=== PATIENT | male | born 1940 | race Caucasian/White ===

== ENCOUNTER 2019-02-19 20:58 | Observation (INO) | payer MEDICARE ==
[2019-02-20 00:07] VITALS: BMI 25.0
[2019-02-20] MEDS ORDERED: hydrALAZINE 20 MG/ML VIAL SLOW IVP PRN (08:31)
[2019-02-20] MEDS ORDERED: Benzonatate 100 MG CAP PO PRN (08:34)
[2019-02-20] MEDS ORDERED: Senokot S 8.6-50 MG TAB PO PRN (08:34)
[2019-02-20] MEDS ORDERED: Nitroglycerin 0.4 MG TAB (25 Tab Bottle) SL PRN (08:34)
[2019-02-20] MEDS ORDERED: Diabetic Tussin 200 MG/10 ML UDCUP PO PRN (08:34)
[2019-02-20] MEDS ORDERED: Bisacodyl 5 MG TAB PO PRN (08:34)
[2019-02-20] MEDS ORDERED: Acetaminophen 500 MG TAB PO PRN (08:34)
[2019-02-20] MEDS ORDERED: Ondansetron PF 4 MG/2 ML Vial IVP PRN (08:34)
[2019-02-20] MEDS ORDERED: Non-Formulary Item 1 EACH (Ubidecarenone [Coq-10] 100 MG) PO SCH (09:00)
[2019-02-20] MEDS ORDERED: LORATADINE 10 MG PO SCH (09:00)
[2019-02-20] MEDS ORDERED: Aspirin 325 mg Enteric Coated Tablet PO SCH (09:00)
[2019-02-20 09:12] LABS: Anion Gap 13 mmol/L (10-20); BUN (Urea Nitrogen) 12 mg/dL (8.4-25.7); Calc. Creatinine Clearance 67 mL/min (70-130); Calcium 9.3 mg/dL (7.8-10.44); Carbon Dioxide 24 mmol/L (23-31); Chloride 95 mmol/L (98-107); Estimated GFR-MDRD 76; Glucose 146 mg/dL (83-110); Potassium 4.3 mmol/L (3.5-5.1); Sodium 128 mmol/L (136-145)
[2019-02-20] MEDS: Loratadine 10 MG TAB PO SCH (10:07)
[2019-02-20] MEDS: Ubidecarenone 50 MG CAP PO SCH (10:09)
[2019-02-20] MEDS: Sodium Chloride 0.9% 1,000 ML IV SCH (11:57)
--- NOTE | 2019-02-20 11:57 | HP ---
PRIMARY CARE PHYSICIAN: Davis Shoemaker MD. PRIMARY GREETER GUEST SERVICES: Scotty Rodriguez MD. CHIEF COMPLAINT: Speech impediment. HISTORY OF PRESENT ILLNESS: Mr. Ace is a very pleasant 78-year-old male with past medical history of hypertension and new diagnosis of prostate cancer, who is scheduled for prostate biopsy on 02/26/2019: Came to the emergency room with above-mentioned complaint. History is mainly obtained by the patient himself and electronic medical records have been reviewed. According to Mr. Ace and his , he had sudden onset of garbled speech yesterday evening around 5:30 p.m. He was last seen by his normal around 6:30 p.m. Later when he was trying to speak, he was not making any sense and he appeared confused. He was not able to answer any of her questions appropriately and would only nod. He did seem to understand the questions, but was not able to answer them correctly. The patient himself remembers that he was trying to write down some important document, but he was not able to write the numbers correctly. He tried very hard to form the numbers, but he could not figure out how to write them. He also noticed that he was trying to say something, but it was coming out of something entirely different. His brought him to [place] [facility] within a short period of time. Upon presentation there, he was hemodynamically stable with a blood pressure 108/69, respirations 18, temperature 99, saturating 96% on room air, and heart rate 86. According to the , his symptoms cleared up significantly in the emergency room in [place]. While they were trying to figure out if he would be a candidate for tPA, he started to talk in full intelligible sentences and since then he has had no recurrence of his symptoms. Because of quick resolution of the symptoms: TPA was not given. His head CT done at the outside emergency room was unremarkable. He was transferred here to our facility for further evaluation. Please note that he was given one dose of 325 mg of aspirin in the [place] [facility] last night. Mr. Ace reports that because of his upcoming prostate biopsy on 02/26/2019: He was supposed to not take his aspirin for 7 days. He did take his aspirin on 02/17 and has just missed the dose on 02/18 for one day. He was given aspirin in the ER on 02/19. The patient otherwise denies any recent illnesses. He did have one episode of fever, chills, and weakness last month, which resolved quickly. He has been in general feeling somewhat tired and having some night sweats. Denies any nausea, vomiting, diarrhea, or abdominal pain. Denies any muscle weakness, facial droop, or any gait issues. His swallowing is intact. Speech is now back to normal. No chest pain, shortness of breath, orthopnea, or PND. No hematemesis, melena, or hematuria. PAST MEDICAL HISTORY: 1. New diagnosis of prostate cancer, scheduled for biopsy on 02/26/2019, PSA was 34. 2. Mitral valve regurgitation, status post repair. PAST SURGICAL HISTORY: 1. Mitral valve repair. 2. Cardiac catheterization in August 2013, which showed normal coronaries, but severe mitral regurgitation with normal left ventricular systolic function. PAST PSYCHIATRIC HISTORY: No anxiety. No depression. SOCIAL HISTORY: No history of drug, tobacco, or alcohol abuse. Lives at home with his . FAMILY HISTORY: Strongly positive for coronary artery disease in his father and his uncle. CODE STATUS: Full code discussed with the patient. REVIEW OF SYSTEMS: A 14-point review of system is done. It is negative except for those mentioned in the history and physical. ALLERGIES: NO KNOWN MEDICATION ALLERGIES. HOME MEDICATIONS: 1. Colace 100 mg daily. 2. CoQ10 daily. 3. Crestor 20 mg daily. 4. Aspirin 81 mg daily. LABORATORY DATA: Lab examination; his sodium numbers were 129 yesterday and 128 on recheck today. Other than that, his serum chemistry, CBC, cardiac enzymes, and liver enzymes are unremarkable. IMAGING STUDIES: CT scan of the brain per my review has no evidence of acute infarction or hemorrhage. He had a CT scan of chest, abdomen, and pelvis on 02/08/2019 and I reviewed that as well. No obvious lung metastases were noticed. He has very large amount of abdominal adenopathy. PHYSICAL EXAMINATION: VITAL SIGNS: Most recent vital signs; temperature 98.3, pulse of 85, respirations 18, saturating 96% on room air, and blood pressure 119/56. GENERAL: He is walking around in the room. Awake, alert, and oriented x3. He does appear somewhat chronically ill and is tanned, but in no acute distress. HEENT: Mucous membrane is slightly dry. No oropharyngeal exudate or erythema. Head is normocephalic and atraumatic. Pupils are equal and reactive to light and accommodation. Extraocular movement intact. CHEST: Clear to auscultation without any wheezing, rales, or rhonchi. Rate and rhythm are regular without any murmurs, rubs, or gallops. ABDOMEN: Soft, nontender, and nondistended. Positive bowel sounds. EXTREMITIES: Free of any cyanosis, clubbing, or edema. NEUROLOGICAL: Nonfocal. Cranial nerves II through XII are grossly intact. Muscle strength is 5/5 in all 4 extremities. Sensation is intact. Gait is not ataxic. No dysdiadochokinesia. PSYCHIATRIC: Normal affect. SKIN: Free of any rashes or bruises. Feels warm and dry to touch. IMPRESSION AND PLAN: 1. Expressive aphasia. The patient's symptoms are resolved by now. Most likely, he has suffered minor stroke, acute cerebrovascular accident versus transient ischemic attack. The patient was given aspirin in the emergency room yesterday. We will bump up his Crestor dose from 20 to 40 for now and check a lipid panel. Get an MRI, echocardiogram, and carotid Doppler ultrasound. Then, we will consult Neurology for further recommendations. The patient is scheduled for a prostate biopsy later next week and aspirin can be prohibitive. Ideally, if we are suspecting transient ischemic attack: He would need to be on aspirin and Plavix as this would be considered an aspirin failure. However, we will have to discuss this with his urologist, Dr. Rees, if his biopsy needs to be changed to another date as he requires anti-platelet therapy for likely acute cerebrovascular accident. We will also discuss it further with a neurologist. We will also consult Stroke Team with frequent neuro checks. He is otherwise hemodynamically stable. 2. Hyponatremia, unknown etiology at this time. Suspect mild dehydration given the patient's history consistent with recent viral illness, poor oral intake, night sweats, and weakness. I do not see any obvious signs of brain or lung metastases on the CT scans obtained to suggest syndrome of inappropriate antidiuretic hormone secretion. We will start him on gentle IV fluids with normal saline and monitor his sodium closely. Monitor other electrolytes as well. He is not on any medications to cause hyponatremia. 3. History of mitral valve regurgitation, status post replacement. 4. Prostate cancer, new diagnosis. The patient's prostate biopsy may need to be rescheduled if he needs to anti-platelet therapy for acute cerebrovascular accident. Further decision will be made after discussion with Urology and Neurology and his MRI results are available. 5. Deep venous thrombosis and gastrointestinal prophylaxis. DISPOSITION: Mr. Ace is currently being admitted to the hospital under observation status for what sounds like TIA. Estimated length of stay at this time is less than 2 midnights. Further management will depend upon his clinical course. Job ID: [id number]
--- NOTE | 2019-02-20 13:12 | MRI ---
EXAM: MRI Brain WO Con PROVIDED CLINICAL HISTORY: Progressively increasing forgetfulness and slurred speech for 2 weeks. TIA. COMPARISON: CT head on 02/19/2019. FINDINGS: Few scattered punctate areas of increased FLAIR and T2-weighted signal intensity are seen in the subc ortical and periventricular white matter which are nonspecific and of uncertain etiology but may be related to mild chronic small vessel ischemic changes. There are a few foci of increased FLAIR and si gnal intensity within each cerebellar hemisphere likely 2 tiny remote bilateral cerebellar hemisphere infarctions. There is no evidence of an acute infarction. Gradient echo images demonstrate focal area of susceptibility artifact in the right cerebellar hemisp here suggesting a tiny focal area of hemosiderin deposition with a small punctate focus of hemosiderin deposition in the right anterior frontal lobe in the supraventricular location. Mild cerebral volume loss is present. The ventricular system is normal in size, shape, and position. The septum pellucidum and third ventricle are in the midline. The right vertebral artery flow-void is dominant, and the left vertebral artery flow void appears to terminate in PICA. This is a normal v ariant. Appropriate flow voids are otherwise demonstrated at the base of the brain. Minimal mucosal thickening is seen in the ethmoidal air cells bilaterally. The orbits and skull base have a normal noncontrast MRI appearance. IMPRESSION: 1. No acute intracranial abnormalities demonstrated. 2. Findings likely attributable to mild chronic small vessel ischemic changes. 3. Tiny remote infarctions each cerebellar hemisphere with focus of hemosiderin deposition in the rig ht cerebellar hemisphere. 4. Mild cerebral volume loss.
[2019-02-20] MEDS ORDERED: Atorvastatin Calcium 40 MG TAB PO SCH (21:00)
[2019-02-20] MEDS ORDERED: Docusate 100 MG CAP PO SCH (21:00)
--- NOTE | 2019-02-20 23:42 | CON ---
DATE OF CONSULTATION: 02/20/2019 CONSULTING PHYSICIAN: Hospitalist Service. IMPRESSION: 1. Transient ischemic attack with transient expressive aphasia. 2. Aspirin failure. PLAN: 1. Add Plavix 75 mg per day. 2. Continue Lipitor and aspirin. 3. Postpone prostate biopsy for at least 2-3 weeks. HISTORY OF PRESENT ILLNESS: Mr. Ace is a 78-year-old man who came in with acute onset of expressive aphasia. He had no focal deficits otherwise. His symptoms lasted around an hour. He was admitted for treatment and evaluation. His MRI of the brain did not reveal any evidence of an acute ischemic event. Laboratory study showed hyponatremia of 128 and a glucose of 146. Since admission, he has not had any further events. PAST MEDICAL HISTORY: Prostate cancer, hyperlipidemia. FAMILY HISTORY: Noncontributory. PAST SURGICAL HISTORY: Mitral valve repair. ALLERGIES: NONE. SOCIAL HISTORY: No tobacco or alcohol. REVIEW OF SYSTEMS: Ten-system review of systems is otherwise negative. PHYSICAL EXAMINATION: VITAL SIGNS: Blood pressure 116/55, pulse 80, respirations 18, and temperature 98.4. HEENT: Pupils are equal. Conjunctivae are clear. Oropharynx is clear. Cranium, normocephalic and atraumatic. NECK: Supple. No lymphadenopathy. EXTREMITIES: No cyanosis or edema. NEUROLOGIC: He is alert and appropriate. His speech is fluent and clear. Cranial nerves 2 through 12 are intact. No motor deficits are present. No tremor or dysmetria was noted. Sensation is intact to touch. His gait is steady and narrow based. IMAGING: MRI images were reviewed. Echocardiogram shows a 50% to 55% ejection fraction. Reportedly there is some prior carotid imaging that I do not have access to and therefore it was elected not to do a carotid ultrasound. SUMMARY: A 78-year-old gentleman was in transient expressive aphasia. We would add Plavix for the time being and give situation time to settle down before pursuing his prostate biopsy. Job ID: [id number]
[2019-02-21 06:51] LABS: Cardiac Risk 3.4 (Less than 4.5)
[2019-02-21 07:44] VITALS: BP 108/52; TEMP 98.4
[2019-02-21 08:40] LABS: Anion Gap 14 mmol/L (10-20); BUN (Urea Nitrogen) 11 mg/dL (8.4-25.7); Calc. Creatinine Clearance 75 mL/min (70-130); Calcium 9.2 mg/dL (7.8-10.44); Carbon Dioxide 22 mmol/L (23-31); Chloride 99 mmol/L (98-107); Estimated GFR-MDRD 87; Glucose 85 mg/dL (83-110); Potassium 4.1 mmol/L (3.5-5.1); Sodium 131 mmol/L (136-145)
[2019-02-21] MEDS: Loratadine 10 MG TAB PO SCH (08:45)
[2019-02-21] MEDS: Ubidecarenone 50 MG CAP PO SCH (08:45)
[2019-02-21] MEDS ORDERED: Aspirin 81 mg Enteric Coated Tablet PO SCH (09:00)
[2019-02-21] MEDS ORDERED: Clopidogrel Bisulfate 75 MG TAB PO SCH (09:00)
[2019-02-21] MEDS: Sodium Chloride 0.9% 1,000 ML IV SCH (09:30)
--- NOTE | 2019-02-22 04:43 | DIS ---
DATE OF ADMISSION: 02/19/2019 DATE OF DISCHARGE: 02/21/2019 CONDITION: At the time of discharge stable and improved. PRIMARY CARE PHYSICIAN: Davis Shoemaker MD. DISCHARGE DIAGNOSES: 1. Transient ischemic attack with expressive aphasia. 2. New diagnosis of prostate cancer. Scheduled for prostate biopsy in the near future. 3. Hyponatremia likely due to dehydration, resolved. DISCHARGE MEDICATIONS: New medications, 1. Plavix 75 mg daily. 2. Aspirin 81 mg daily. Please note that the dose has been reduced from 325 to 81. 3. Crestor 40 mg daily. Please note that the dose has been increased from 20 mg daily to 40 mg daily. Continue, 1. CoQ10. 2. Loratadine. 3. Docusate. IN-HOUSE CONSULTATION: Neurology, Dr. Paras Morley. PROCEDURES DONE IN THE HOSPITAL: 1. MRI of the brain which did not show any acute changes. There are remote tiny infarction and cerebellar hemispheres with focal of hemosiderin deposition in the right cerebellar hemisphere and mild cerebral volume loss. 2. Echocardiogram which shows EF of 50% to 55%, but no thrombus in the cardiac chambers. HISTORY OF PRESENTING ILLNESS: Mr. Ace is a very pleasant 78-year-old male, who was recently diagnosed with prostate cancer, who came to the emergency room for symptoms of expressive aphasia and confusion, which resolved by itself without requiring TPA. By the time he was admitted, his symptoms were gone. He was otherwise hemodynamically stable. He was admitted for stroke workup. Please see admission history and physical dictated by myself yesterday on 02/20/2019 for full details. HOSPITAL COURSE: The patient's hospital course was unremarkable. His neurological status remained stable and his NIH was zero. His MRI was negative and echo did not show any cardiac thrombus. Neurology was consulted and Dr. Morlye recommended adding Plavix as this was an aspirin failure. Please note that this patient is scheduled to undergo a prostate biopsy on 02/26/2019, but I discussed this with his urologist, Dr. Rees and the biopsy will be postponed as he needs to be on aspirin and Plavix for at least 2 to [address] Rees recommended that the biopsy is not a priority and it can be rescheduled for a later date. I have discussed this information with and Mrs. Ace and they verbalized understanding. They will follow up with Dr. Rees in the outpatient setting. They have already called and made appointments etc. He was seen and examined this morning and he is feeling well and back to baseline and he is eager to go home. He will be discharged. PHYSICAL EXAMINATION: VITAL SIGNS: This morning, vital signs temperature 98.4, heart rate 76, blood pressure 108/52, and saturating 93% on room air. NEUROLOGICAL: Nonfocal. CHEST: Clear to auscultation bilaterally. Rate rhythm is regular. FOLLOWUP VISITS: They will follow up with primary care physician in 1 to [address] Rees in 3 to 4 weeks. Job ID: [id number]
== END 2019-02-21 10:29 | disposition home or self-care (01) ==
LOC: ERS 20:58 → 2SE 23:13
PROVIDERS: ADMIT Hospitalist; ATTEND Hospitalist
DX: G45.9 Transient cerebral ischemic attack, unspecified (principal); C61 Malignant neoplasm of prostate; E87.1 Hypo-osmolality and hyponatremia; E86.0 Dehydration; I10 Essential (primary) hypertension; E78.5 Hyperlipidemia, unspecified; Z79.82 Long term (current) use of aspirin; Z79.01 Long term (current) use of anticoagulants; Z79.899 Other long term (current) drug therapy
CPT/HCPCS: 70551; 80048 ×2; 80061; 93306; 96360; 96361 ×2; 97139 ×3; 99285; G0378 ×2; 36415

== ENCOUNTER 2019-03-05 12:57 | Day surgery (SDC) | payer MEDICARE ==
[2019-03-04 08:44] VITALS: BMI 24.6
--- NOTE | 2019-03-04 12:27 | HP ---
HISTORY OF PRESENT ILLNESS: Simón Ace is a 78-year-old male patient followed by Dr. Shoemaker, referred to Dr. Rees for prostate problems, undergoing biopsy, felt on the rectal exam to have a certain prostatic cancer. He had a biopsy scheduled on 02/26/2019, but he suffered a TIA requiring 2-day hospitalization. He had some dysphagia, speech issues that resolved completely and discharged home. He was seen by Dr. Caicedo. He was on aspirin previously and Plavix added to his regimen. The patient after the TIA event had his prostate biopsy postponed to April 02. He, however, had been developing night sweats, chills, malaise, anorexia and suffered [address] scan of chest, abdomen, and pelvis revealed diffuse lymphadenopathy of abdomen, periaortic and iliac. On exam today, he is appreciated to have right groin lymphadenopathy. Plan is biopsy right groin lymph nodes and touch prep under IV sedation and local anesthesia outpatient and there is some possibility that a laparoscopy may be needed to gain adequate tissue during this encounter. He understands risks and benefits and consents. The patient will be seeing Dr. Villalpando in the future once we have a tissue diagnosis. PAST SURGICAL HISTORY: Open mitral valve repair at [facility] in August 2013, left inguinal hernia repair in the past in early . Manager Software Development Dr. Summers. Urologist, Dr. Mg, primary care Dr. Shoemaker. MEDICATIONS: Alavert, aspirin, Plavix. Note, aspirin and Plavix had been held in the last week, Crestor 20 mg a day. ALLERGIES: SIDE EFFECTS; LEVAQUIN AND FLOMAX. PAST MEDICAL HISTORY: As noted above with hypertension. REVIEW OF SYSTEMS: Noncontributory. Never has had a colonoscopy. PHYSICAL EXAMINATION: VITAL SIGNS: 163 pounds, 5 feet 8 inches, 25 BMI, blood pressure 115/51, pulse 88, temperature 97.7 degrees. HEAD, EARS, EYES, NOSE AND THROAT: Unremarkable. LUNGS: Clear to auscultation. CARDIAC: Regular rate and rhythm without murmur or gallop. ABDOMEN: Soft and nontender. No palpable masses. Lymphadenopathy, right groin more than left. Axilla and neck without lymphadenopathy. EXTREMITIES: Unremarkable. ASSESSMENT/PLAN: Diffuse lymphadenopathy with symptoms suggestive of lymphoma. We will plan biopsy of right groin, possible laparoscopy with conversion to general if necessary pending touch prep on the right groin. He understands risks and benefits. Job ID: [id number]
[2019-03-05] MEDS ORDERED: Bupivacaine HCl 0.5%/Epinephrine 1:200,000/PF 30 ml Vial ONE (16:29)
[2019-03-05] MEDS ORDERED: Fentanyl 100 MCG/2 ML VIAL ONE (16:38)
--- NOTE | 2019-03-06 11:34 | OP ---
DATE OF PROCEDURE: 03/05/2019 PREOPERATIVE DIAGNOSES: Weight loss, anorexia, and lymphadenopathy, intraabdominal possible right groin. POSTOPERATIVE DIAGNOSES: Weight loss, anorexia, and lymphadenopathy, intraabdominal possible right groin and fatty node, right groin. PROCEDURES PERFORMED: Biopsy right groin node, not insurance service representative and laparoscopic resection of retroperitoneal node, 3.5 cm diameter, pathologic. ANESTHESIA: , and local 0.5% Marcaine with epinephrine. DESCRIPTION OF PROCEDURE: The patient was taken to the operating room where under intravenous sedation and local MAC, his right groin and abdomen prepared with ChloraPrep and draped in routine fashion. Local anesthetic was infiltrated into the skin and subcutaneous tissues. An incision made in the right groin, carried down through skin and subcutaneous tissue and what was felt to be a node was a small fatty node. It was excised and wound closed with 3-0 Monocryl proximally in the subcutaneous tissue, skin with subdermal 4-0 Monocryl and Runge glue applied. Node was submitted to pathology, but was inadequate by gross inspection. Left lateral subcostal incision made and pneumoperitoneum to 15 mmHg obtained with a Veress needle, replaced with a 5 port and laparoscope inserted. Left lower quadrant incision made and a 5 port placed. Left lateral mid abdominal incision was made and 11 port placed. There was a large retroperitoneum noted as the viscera reflected to the patient's right. This node was dissected free and incising the peritoneum with LigaSure, dissecting node carefully from the aortic area. Once this was freed, it was placed in Endobag and removed. Good hemostasis obtained with cautery and Geeta left in place. Node removed through an Endobag and submitted to Pathology. Extraction point had to be dilated and enlarged to remove the large node. Fascia approximated with figure-of-8 sutures of 0 Vicryl on UR needle. Pneumoperitoneum reduced. All instruments were removed. All skin incisions were approximated with a subdermal 4-0 Monocryl and Runge glue applied. Job ID: [id number]
== END 2019-03-05 19:38 | disposition home or self-care (01) ==
LOC: SDC 12:57
PROVIDERS: ATTEND Specialist
PROC: 07TH4ZZ Resection of Right Inguinal Lymphatic, Percutaneous Endoscopic Approach (ICD-10-PCS; principal; 2019-03-05)
PROC: 07TH4ZZ Resection of Right Inguinal Lymphatic, Percutaneous Endoscopic Approach (ICD-10-PCS; 2019-03-05)
DX: C77.5 Secondary and unspecified malignant neoplasm of intrapelvic lymph nodes (principal); R63.0 Anorexia; R63.4 Abnormal weight loss; G47.33 Obstructive sleep apnea (adult) (pediatric); E78.5 Hyperlipidemia, unspecified; Z68.24 Body mass index [BMI] 24.0-24.9, adult; Z79.82 Long term (current) use of aspirin; Z79.899 Other long term (current) drug therapy; Z87.891 Personal history of nicotine dependence; Z88.8 Allergy status to other drugs, medicaments and biological substances; Z99.89 Dependence on other enabling machines and devices
CPT/HCPCS: 88184; 88305; 88341; 88342; J0131; J0670; J0690; J3010

== ENCOUNTER 2019-03-07 09:59 | Observation (INO) | payer MEDICARE ==
[2019-03-07 11:22] LABS: Bilirubin Negative (Negative); Blood, Urine Negative (Negative); Clarity CLEAR (Clear); Glucose, Urine (Dipstick) Negative (Negative); Leukocyte Negative (Negative); Nitrite Negative (Negative); Protein, Urine (Dipstick) Negative (Neg-Trace); Specific Gravity, Urine 1.015 (1.002-1.036); Urobilinogen 0.2 mg/dL (0.2-1.0); pH, Urine 5.5 (5.0-9.0)
[2019-03-07 11:48] LABS: #Lymphocytes 0.9 thou/uL (1.20-3.40); #Monocytes 0.5 thou/uL (0.11-0.59); #Neutrophils 6.8 thou/uL (1.40-6.50); %Basophils 0.2 % (0.0-1.0); %Eosinophils 0.6 % (0.0-10.0); %Lymphocytes 11.1 % (21.0-51.0); %Monocytes 6.2 % (0.0-10.0); %Neutrophils 81.9 % (42.0-75.0); Hemoglobin 10.2 g/dL (14.0-18.0); Mean Corpuscular HGB CONC 32.8 g/dL (32.0-36.0); Mean Corpuscular Hemoglobin 30.2 pg (27.0-31.0); Mean Platelet Volume 7.2 fL (7.4-10.4); Platelet Count 310 thou/uL (130-400); RBC Distribution Width 14.3 % (11.5-14.5); Red Blood Cell (RBC) Count 3.39 mill/uL (4.70-6.10); White Blood Cell (WBC) Count 8.3 thou/uL (4.8-10.8)
[2019-03-07 12:20] LABS: Anion Gap 16 mmol/L (10-20); BUN (Urea Nitrogen) 28 mg/dL (8.4-25.7); Calc. Creatinine Clearance 0 mL/min (70-130); Calcium 10.6 mg/dL (7.8-10.44); Carbon Dioxide 24 mmol/L (23-31); Chloride 91 mmol/L (98-107); Estimated GFR-MDRD 34; Glucose 151 mg/dL (83-110); Potassium 5.2 mmol/L (3.5-5.1); Sodium 126 mmol/L (136-145)
--- NOTE | 2019-03-07 14:59 | ULT ---
US Renal Bilateral STANDARD History: [Renal disease. Unable to urinate.] Comparison: None. Findings: Right kidney measures 10.6 x 4.7 x 5.3 cm. Left kidney measures 11 x 6 x 5.1 cm. There is a simple cyst interpolar right kidney measuring 1.8 cm. Urinary bladder volume is 206 mL. Indwelling Rosales catheter. No renal mass or hydronephrosis. Impression: No evidence for obstructive uropathy. Simple cyst right kidney.
[2019-03-07 16:50] VITALS: BMI 24.9
[2019-03-07] MEDS ORDERED: Ondansetron ODT 4 MG TAB SL PRN (17:01)
[2019-03-07] MEDS ORDERED: Sodium Chloride 0.9% 1,000 ML IV SCH (17:01)
[2019-03-07] MEDS ORDERED: Acetaminophen 325 MG TAB PO PRN (17:01)
[2019-03-07] MEDS ORDERED: Ondansetron PF 4 MG/2 ML Vial IVP PRN ×2 (17:01→18:28)
[2019-03-07] MEDS ORDERED: Lorazepam 2 MG/ML VIAL SLOW IVP PRN (18:28)
[2019-03-07] MEDS ORDERED: hydrALAZINE 20 MG/ML VIAL SLOW IVP PRN (18:28)
[2019-03-07] MEDS ORDERED: traMADol HCl 50 MG TAB PO PRN ×2 (18:31)
[2019-03-07] MEDS ORDERED: Ondansetron ODT 4 MG TAB PO PRN (18:31)
[2019-03-07] MEDS ORDERED: Acetaminophen 500 MG TAB PO PRN (18:31)
[2019-03-07] MEDS ORDERED: Ondansetron ODT 8 MG TAB SL PRN (18:31)
[2019-03-07] MEDS ORDERED: Tamsulosin HCl 0.4 MG CAP PO SCH (21:00)
[2019-03-07] MEDS ORDERED: Enoxaparin Sodium 40 MG/0.4 ML SYRINGE SC SCH (21:00)
[2019-03-07] MEDS: Famotidine 20 MG TAB PO SCH (21:21)
[2019-03-07] MEDS: Sodium Chloride 0.9% 1,000 ML IV SCH (21:21)
--- NOTE | 2019-03-08 00:45 | HP ---
HISTORY OF PRESENT ILLNESS: Simón Ace is a 78-year-old male patient who 2 days ago had an exploration of his right groin without finding significant lymphadenopathy and then underwent laparoscopic retroperitoneal node biopsy of a large retroperitoneal periaortic node. This was resected and submitted to Pathology. Postoperatively, he was discharged home. He apparently had not been able to urinate in 2 days. He called the office and we advised him to go to his local emergency room or call his urologist. Apparently, he called Dr. Rees's office and was told to come his office then en route, told to go to the emergency room. He reported to [facility]. He had a Rosales catheter placed, had 1.7 L output. He had a renal ultrasound performed, it did not reveal hydronephrosis. His laboratories revealed a hemoglobin of 10, white count of 8.3, and his sodium was 126, potassium 5.2, BUN 28, creatinine 1.94. The patient is admitted for hydration and monitoring renal function for his acute kidney injury. His abdominal pain is relieved after decompression of his bladder. Urinalysis is unremarkable and not suggestive of UTI. I have reviewed the pathology with the pathologist, and immunostains were pending for this afternoon, but initial report is that he has metastatic prostate cancer. He had seen Dr. Rees prior to this biopsy and felt on rectal exam to have obvious prostate cancer and a prostate biopsy scheduled, but this was canceled and rescheduled for another day. He has an appointment with Dr. Villalpando next week Sunday. His BUN and creatinine are 28 and 1.94, GFR 34. ALLERGIES: SIDE EFFECTS, LEVAQUIN AND FLOMAX. TOBACCO: None. ALCOHOL: None. MEDICATIONS: 1. Alavert. 2. Aspirin. 3. Plavix. PAST SURGICAL HISTORY: Open mitral valve repair at [facility] in August 2013, left inguinal hernia repair in the past or in 1999s. HOSPITAL MANAGER: Dr. Rodriguez. UROLOGIST: Dr. Rees. PRIMARY CARE DOCTOR: Dr. Shoemaker. ONCOLOGIST: Dr. Villalpando, will see him next week. REVIEW OF SYSTEMS: Ten-point noncontributory. HOME MEDICATIONS: Include; 1. CoQ10. 2. Crestor. 3. Alavert. 4. Tylenol Extra Strength. 5. Plavix. PHYSICAL EXAMINATION: VITAL SIGNS: 98.2, 94, 112/67. HEAD, EARS, EYES, NOSE AND THROAT: Unremarkable. LUNGS: Clear to auscultation. CARDIAC: Regular rate and rhythm without murmur or gallop. ABDOMEN: Soft. Laparoscopic wounds well healed. Groin wound, right, well healed. EXTREMITIES: Unremarkable. Rosales catheter draining clear urine. ASSESSMENT/PLAN: 1. Probable metastatic prostate cancer. Awaiting final pathology report. Rectal exam by Dr. Rees clinically felt to have prostate cancer. 2. Acute kidney injury. 3. Postoperative urinary retention. We will teach use of Rosales bag and plan discharge home in the next 24 to 48 hours. He will need to wear his Rosales for several weeks and he will need to follow up with Dr. Rees regarding this. Job ID: [id number]
[2019-03-08] MEDS: Sodium Chloride 0.9% 1,000 ML IV SCH (04:23)
[2019-03-08 06:00] LABS: #Monocytes 0.5 thou/uL (0.11-0.59); #Neutrophils 4.5 thou/uL (1.40-6.50); %Basophils 0.6 % (0.0-1.0); %Eosinophils 0.7 % (0.0-10.0); %Lymphocytes 16.6 % (21.0-51.0); %Monocytes 8.2 % (0.0-10.0); %Neutrophils 73.8 % (42.0-75.0); Hemoglobin 8.7 g/dL (14.0-18.0); Mean Corpuscular HGB CONC 32.9 g/dL (32.0-36.0); Mean Corpuscular Hemoglobin 30.5 pg (27.0-31.0); Mean Corpuscular Volume 92.5 fL (78.0-98.0); Platelet Count 262 thou/uL (130-400); RBC Distribution Width 14.3 % (11.5-14.5); Red Blood Cell (RBC) Count 2.87 mill/uL (4.70-6.10); White Blood Cell (WBC) Count 6.1 thou/uL (4.8-10.8)
[2019-03-08 06:24] LABS: Anion Gap 12 mmol/L (10-20); BUN (Urea Nitrogen) 15 mg/dL (8.4-25.7); Calc. Creatinine Clearance 80 mL/min (70-130); Calcium 8.8 mg/dL (7.8-10.44); Carbon Dioxide 24 mmol/L (23-31); Chloride 102 mmol/L (98-107); Estimated GFR-MDRD Greater than 90; Glucose 81 mg/dL (83-110); Potassium 4.2 mmol/L (3.5-5.1); Sodium 134 mmol/L (136-145)
[2019-03-08] MEDS: Famotidine 20 MG TAB PO SCH (08:21)
[2019-03-08 12:08] VITALS: BP 117/67; TEMP 98.9
--- NOTE | 2019-03-08 18:36 | DIS ---
DATE OF ADMISSION: 03/07/2019 DATE OF DISCHARGE: 03/08/2019 DISCHARGE DIAGNOSES: Prostate cancer status post retroperitoneal laparoscopic lymph node biopsy, verbal preliminary result from Pathology reveals this lymph node is consistent with metastatic prostate cancer. Immunochemical staining was pending at 3 o'clock, Sunday afternoon, and prosecution has not been performed. He has an appointment to see Dr. Villalpando on Sunday. Final pathology results should be back by then. Dr. Rees seen the patient previously and prostate biopsy is planned in the future. This may not be necessary with these findings. The patient has suffered postoperative urinary retention. He reported to hospital two days after his retroperitoneal biopsy not having urinated in 2 days. He had more than 2 L of urinary retention. Rosales catheter was placed. Ultrasound of the kidneys did not reveal hydronephrosis. However, he had acute kidney injury with BUN and creatinine increased to 28 and 1.94 that after relieve his urinary retention of over 2 L and hydration. His BUN and creatinine returned to normal 15 and 0.8. He has an appointment to see Dr. Villalpando next week. He had a PSA on 02/03/2019 of 34. He is tolerating his diet. He will resume his home medications. His surgical wounds look good. Activity and diet without restrictions. From my standpoint, he should see Dr. Rees next week or two regarding his urinary retention. I expect he would need his Rosales catheter for 2 to 3 weeks or longer per Dr[address] Rees. Job ID: [id number]
[2019-03-08] MEDS ORDERED: Tamsulosin HCl 0.4 MG CAP PO SCH (21:00)
== END 2019-03-08 15:05 | disposition home or self-care (01) ==
LOC: ERS 09:59 → SJJU 14:53
PROVIDERS: ADMIT Specialist; ATTEND Specialist
DX: C61 Malignant neoplasm of prostate (principal); N17.9 Acute kidney failure, unspecified; N99.89 Other postprocedural complications and disorders of genitourinary system; N28.1 Cyst of kidney, acquired; Z88.1 Allergy status to other antibiotic agents; Z88.8 Allergy status to other drugs, medicaments and biological substances; Z79.82 Long term (current) use of aspirin; Z79.899 Other long term (current) drug therapy
CPT/HCPCS: 51703; 76770; 80048 ×2; 81003; 85025 ×2; 96360; 96361 ×2; 96372; 96374; 99285; G0378 ×2; 36415; J1650; J2060

== ENCOUNTER 2019-03-18 09:43 | Outpatient (CLI) | payer MEDICARE ==
--- NOTE | 2019-03-18 14:38 | NM ---
WHOLE BODY BONE SCAN: HISTORY: Malignant neoplasm of prostate RADIOPHARMACEUTICAL: 30 mCi technetium 99m-MDP injected intravenously COMPARISON: None CORRELATION: CT chest, abdomen and pelvis dated 02/08/2019 FINDINGS: Foci of increased uptake in the right scapula, thoracic spine, bilateral ribs, bilateral sacroiliac r egions and bilateral proximal femurs are consistent with metastatic disease. There scattered degenerative activity in the appendicular skeleton. Tracer excretion through the kidneys is within normal limits. IMPRESSION: Findings are consistent with osseous metastatic disease.
== END 2019-03-18 09:44 | disposition home or self-care (01) ==
LOC: NM 09:43
PROVIDERS: ATTEND Internal Medicine Hematology & Oncology
DX: R97.20 Elevated prostate specific antigen [PSA] (principal)
CPT/HCPCS: 78306; A9503

== ENCOUNTER 2019-03-19 12:03 | Outpatient (CLI) | payer MEDICARE ==
--- NOTE | 2019-03-19 14:38 | RAD ---
RADIOGRAPH LEFT FEMUR 2 VIEWS: 03/19/19 HISTORY: 78-year-old male with malignant neoplasm of prostate. FINDINGS: Subtle finding of ill-defined, irregularly shaped focal hyperdensity at the left intertrochanteric re gion measuring approximately 3.5 x 1.5 cm, corresponds to the region of increased uptake on the bone scan from yesterday. This would be inconspicuous, were it not for the bone scan images. No fracture. 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 POS: [facility]
--- NOTE | 2019-03-19 14:40 | RAD ---
RADIOGRAPH RIGHT FEMUR 2 VIEWS: 03/19/19 HISTORY: 78-year-old male with malignant neoplasm of prostate. FINDINGS: There is a subtle finding of small ill-defined region of increased attenuation is noted at the right medial intertrochanteric region, at the base of the lesser trochanter. This corresponds to the focus of increased uptake on the recent bone scan. This would be inconspicuous, were it not for the bone sc an images. No other lesions are visualized in the rest of the right femur. IMPRESSION: Very faint, subtle finding of probable osteoblastic small metastatic lesion in the right proximal fem ur. POS: [facility]
--- NOTE | 2019-03-19 14:42 | RAD ---
RADIOGRAPH LEFT HIP 2 VIEWS: 03/19/19 HISTORY: 78-year-old male with malignant neoplasm of prostate. FINDINGS: Subtle, faint sclerotic lesion at central intertrochanteric region corresponds to the area of increas ed uptake on the recent bone scan. This would be inconspicuous, were it not for the bone scan images. Femoral head is not flattened. Minimal subcapital osteophytosis and mild sclerotic changes at acetab ular roof. Mild joint space narrowing. IMPRESSION: 1. Subtle sclerotic lesion at left intertrochanteric proximal femur consistent with osteoblastic metastatic deposit. 2. Mild osteoarthrosis of the left hip. POS: [facility]
--- NOTE | 2019-03-19 14:45 | RAD ---
RADIOGRAPH RIGHT HIP 2 VIEWS: DATE: 03/19/2019. HISTORY: A 78-year-old male with malignant neoplasm of prostate. FINDINGS: There is a subtle finding of a small, faintly sclerotic lesion abutting the base of the lesser trocha nteric corresponding to the focus of increased uptake on the recent bone scan. This would be inconsp icuous, were it not for the bone scan images. No high-grade DJD of the hip. IMPRESSION: Subtle finding of small osteoblastic metastasis in the proximal right femur. This would be better de monstrated on CT. POS: [facility]
== END 2019-03-19 12:04 | disposition home or self-care (01) ==
LOC: BICRAD 12:03
PROVIDERS: ATTEND Internal Medicine Hematology & Oncology
DX: C61 Malignant neoplasm of prostate (principal); C79.51 Secondary malignant neoplasm of bone; M89.9 Disorder of bone, unspecified
CPT/HCPCS: 36415; 80053; 82248; 83615; 84100; 84153; 84550

== ENCOUNTER 2019-04-07 09:14 | Outpatient (CLI) | payer MEDICARE ==
[2019-04-07 10:31] LABS: Bilirubin Negative (Negative); Blood, Urine Small (Negative); Glucose, Urine (Dipstick) Negative (Negative); Leukocyte Large (Negative); Nitrite Positive (Negative); Protein, Urine (Dipstick) 30 mg/dL (Neg-Trace); Urobilinogen 0.2 mg/dL (Less than 2)
[2019-04-07 10:32] LABS: Hemoglobin 10.9 g/dL (14.0-18.0); Mean Corpuscular Hemoglobin 31.8 pg (27.0-31.0); Mean Corpuscular Volume 96.2 fL (78.0-98.0); Mean Platelet Volume 7.8 fL (7.4-10.4); Platelet Count 200 thou/uL (130-400); RBC Distribution Width 17.5 % (11.5-14.5); Red Blood Cell (RBC) Count 3.43 mill/uL (4.70-6.10); White Blood Cell (WBC) Count 5.7 thou/uL (4.8-10.8)
[2019-04-07 10:33] LABS: Clarity Clear (Clear)
[2019-04-07 10:34] LABS: INR-International Normal Ratio 0.9; PTT 28.7 SEC (22.9-36.1); Prothrombin Time 12.4 SEC (12.0-14.7)
[2019-04-07 10:44] LABS: Bacteria/HPF 1+ HPF (None Seen); RBC/HPF 21-50 HPF (0-3); WBC/HPF Greater than 50 HPF (0-3)
[2019-04-07 10:50] LABS: Anion Gap 14 mmol/L (10-20); BUN (Urea Nitrogen) 16 mg/dL (8.4-25.7); Calc. Creatinine Clearance 0 mL/min (70-130); Calcium 9.2 mg/dL (7.8-10.44); Carbon Dioxide 25 mmol/L (23-31); Chloride 101 mmol/L (98-107); Estimated GFR-MDRD 76; Glucose 85 mg/dL (83-110); Potassium 4.7 mmol/L (3.5-5.1); Sodium 135 mmol/L (136-145)
== END 2019-04-07 09:15 | disposition home or self-care (01) ==
LOC: LABBT 09:14
PROVIDERS: ATTEND Urology
DX: Z01.818 Encounter for other preprocedural examination (principal); C61 Malignant neoplasm of prostate; C77.2 Secondary and unspecified malignant neoplasm of intra-abdominal lymph nodes; R33.8 Other retention of urine
CPT/HCPCS: 80048; 81001; 85027; 85610; 85730; 87077; 87086; 87186; 93005; 93010

== ENCOUNTER 2019-04-17 05:42 | Day surgery (SDC) | payer MEDICARE ==
[2019-04-07 09:58] VITALS: BMI 24.0
[2019-04-17] MEDS ORDERED: Sodium Chloride 0.9% 100 ML ONE (06:15)
[2019-04-17] MEDS ORDERED: CEFAZOLIN 1 GM VIAL ONE (06:15)
[2019-04-17] MEDS ORDERED: Bupivacaine 0.25% HCL 30 ML VIAL ONE (06:40)
[2019-04-17] MEDS ORDERED: Fentanyl 100 MCG/2 ML VIAL ONE (07:06)
--- NOTE | 2019-04-17 10:55 | OP ---
DATE OF PROCEDURE: 04/17/2019 SERVICE: Urology. PREOPERATIVE DIAGNOSIS: Metastatic prostate cancer. POSTOPERATIVE DIAGNOSIS: Metastatic prostate cancer. PROCEDURE PERFORMED: Bilateral simple orchiectomy. INDICATIONS FOR PROCEDURE: Mr. Ace is a 79-year-old white male, who initially presented with significantly elevated PSA. He also had enlarged lymph nodes, and there was concern for possible diagnosis of lymphoma. He underwent excision of one of the lymph nodes, which demonstrated that he had metastatic prostate cancer. As such, the patient has been initiated on bicalutamide and Lupron. Due to distances of driving and time commitments, he does not wish to receive Lupron every 3 months or every 6 months indefinitely and opted instead for surgical castration. We discussed the surgery, risks, and benefits, and he has agreed to proceed forward. DESCRIPTION OF PROCEDURE: After identification of armband and verification of consent, the patient was brought back to the operating room, where he underwent general anesthesia with an LMA. He was then left in the supine position and prepped and draped in sterile fashion. After appropriate time-out, bilateral cord blocks were performed with 0.25% Marcaine plain. An incision was made down the median raphe of the scrotum with a 15 blade and dissection carried down through the dartos and external spermatic fascias with Bovie electrocautery. First, the left testicle was delivered outside the incision, and the internal spermatic fascias and cremasters were divided using Metzenbaum scissors and Bovie electrocautery. A small incision was made in the tunica vaginalis and the tunic vaginalis opened until the entire testicle could be delivered. The surrounding tissues were dissected free until the cord was the only structure connected to the testicle. The testicle appeared normal without masses or irregularity. The vas deferens was out from the remainder of the spermatic cord, ligated, and divided. The remainder of his spermatic cord was then ligated independently and divided, releasing the left testicle, which was delivered for routine pathologic evaluation. The cord stump was infiltrated with 0.25% Marcaine plain, and there was no bleeding identified, and this was delivered back into his scrotum, which retracted somewhat and towards the external ring. The same procedure was then repeated on the right side with dissection with Metzenbaums and Bovie electrocautery down to the internal spermatic fascia and tunica vaginalis. The tunica vaginalis was opened, which released a very small amount of hydrocele fluid. This was then opened completely with Bovie electrocautery until the testicle could be delivered out. The surrounding tissues were dissected free from the spermatic cord until only the cord and testicle were attached. The vas deferens was dissected free and then ligated and divided. The cord itself was then clamped with a hemostat, ligated and divided. All ligations were performed with a 2-0 silk permanent suture, tied to prevent for future bleeding. The cord was infiltrated with 0.25% Marcaine plain and then released, which retracted up toward the external inguinal ring. The testicle was delivered off for routine pathologic evaluation. The scrotal pouch was then inspected carefully for bleeding, and there were very few bleeders encountered. These were cauterized with Bovie electrocautery. Once completely dry, the scrotum was irrigated out with sterile saline and then the fluid suctioned out and dried with Ray-tecs. Upon completion, the scrotal pouch was completely dry. The dartos and spermatic fascias were reapproximated using a running 2-0 Vicryl and the skin closed with a 4-0 Monocryl in a running fashion. Dermabond was applied, and once dried, scrotal fluffs and a jockstrap were applied. The patient was then awakened, taken to PACU for recovery in stable condition. COMPLICATIONS: None. ESTIMATED BLOOD LOSS: Minimal. RETAINED TUBES AND DRAINS: None. SPECIMENS: Bilateral testicles. DISPOSITION: The patient will be discharged home and follow up with me in approximately 1 to 2 weeks for postop check. Job ID: [id number]
== END 2019-04-17 10:45 | disposition home or self-care (01) ==
LOC: SDC 05:42
PROVIDERS: ATTEND Urology
PROC: 0VTC0ZZ Resection of Bilateral Testes, Open Approach (ICD-10-PCS; principal; 2019-04-17)
DX: C61 Malignant neoplasm of prostate (principal); C77.9 Secondary and unspecified malignant neoplasm of lymph node, unspecified; R97.21 Rising PSA following treatment for malignant neoplasm of prostate; I48.91 Unspecified atrial fibrillation; G47.33 Obstructive sleep apnea (adult) (pediatric); E78.5 Hyperlipidemia, unspecified; Z88.1 Allergy status to other antibiotic agents; Z99.89 Dependence on other enabling machines and devices; Z88.8 Allergy status to other drugs, medicaments and biological substances
CPT/HCPCS: 88302; J0690; J3010; J3490; S0020

== ENCOUNTER 2019-07-23 08:50 | Outpatient (CLI) | payer MEDICARE ==
--- NOTE | 2019-07-23 12:26 | CT ---
CT CHEST AND ABDOMEN AND PELVIS WITH IV CONTRAST: INDICATIONS: Prostate cancer given as reason for exam. TECHNIQUE: Oral contrast was given. Multiplanar reconstruction. FINDINGS: CHEST The lung castellanos are clear. No infiltrate or effusion. No evidence of pulmonary mass or nodule. The mediastinum is unremarkable. Nonspecific mediastinal lymph nodes without adenopathy. Thyroid unre markable. Thoracic aorta and pulmonary arteries unremarkable. Bone windows show abnormal model density through all the visualized vertebrae, which is concerning fo r diffuse osseous metastasis. There is postop sternotomy change. IMPRESSION: Abnormal mottled density to the thoracic vertebrae concerning for bony metastasis. CT chest otherwis e unremarkable. ABDOMEN AND PELVIS: Liver and spleen unremarkable. There is mild prominence to the pancreatic head. This was described o n the prior exam. The pancreatic head appearance is stable. No enhancing mass identified within the p ancreas. Biliary ducts appear of normal caliber. Adrenal glands normal. Kidneys unremarkable. There is a circumscribed cyst in the mid right kidney measuring 2 cm which is s table. The area of questioned hypodensity in the mid left renal cortex on the prior study is not appr eciated today. Small bowel loops of normal caliber. The colon is unremarkable. Diverticulosis of the sigmoid without evidence of diverticulitis. Aorta of normal caliber. Review of lymph nodes today shows significant decrease in the adenopathy that was noted on the prior study. On the prior exam there was confluent adenopathy in the paracaval region in the upper abdomen. This has all resolved with tiny residual subcentimeter lymph nodes now seen at this location. Likewi se paracaval adenopathy in the mid abdomen has significantly decreased. There are now small residual lymph nodes measuring up to 1 cm in this region, in the mid abdomen. A large lymph node was seen previously anterior to the IVC at the aortic bifurcation. This lymph node has resolved. The iliac chain adenopathy noted previously has also regressed. Small nonspecific pelvic sidewall nod es are present today. The perirectal and presacral lymph nodes described previously have regressed. The prostate appears slightly smaller today. The osseous structures showed diffuse abnormal model density to all visualized osseous structures, in cluding lumbar spine and pelvis. Findings would suggest diffuse bony metastasis. IMPRESSION: 1. Significant regression of the abdominal adenopathy described on the prior examination. 2. Prominence of the head of the pancreas is again seen and is stable in appearance. No definite panc reatic mass. 3. Diffuse bony mottled sclerosis, consistent with diffuse osseous metastasis. POS: [facility]
--- NOTE | 2019-07-23 13:21 | NM ---
NUCLEAR MEDICINE WHOLE BODY BONE SCAN: HISTORY: Prostate cancer with metastases. COMPARISON: 03/18/2019 TECHNIQUE: The patient was administered 32 millicuries of technetium 99m MDP intravenously. Whole body imaging w as performed. FINDINGS: Compared to the previous examination, the overall number of lesions with increased radiotracer locali zation has increased with regards to the ribs as well as the thoracic and lumbar vertebra. Persistent uptake in the shoulders and hips is likely in part due to degenerative change. However, up take in the left and right femurs goes beyond the joint space and may represent metastatic involvement. IMPRESSION: Multifocal osseous metastases. The overall degree of osseous involvement appears to have increased si nce the previous bone scan. Transcribed Date/Time: 07/23/2019 1:49 PM
== END 2019-07-23 08:51 | disposition home or self-care (01) ==
LOC: CT 08:50
PROVIDERS: ATTEND Internal Medicine Hematology & Oncology
DX: C61 Malignant neoplasm of prostate (principal); C79.51 Secondary malignant neoplasm of bone; M89.8X9 Other specified disorders of bone, unspecified site
CPT/HCPCS: 71260; 74177; 78306; A9503

== ENCOUNTER 2019-10-15 08:10 | Outpatient (CLI) | payer MEDICARE ==
--- NOTE | 2019-10-15 11:52 | CT ---
CT CHEST WITH IV CONTRAST CT ABDOMEN WITH IV CONTRAST CT PELVIS WITH IV CONTRAST: HISTORY: Prostate cancer COMPARISON: 07/23/2019 FINDINGS: There is a 15 mm mediastinal lymph node in the precarinal region and 12 mm lymph node in the subcarin al region which are new since the last exam. No hilar or axillary lymphadenopathy is seen. No pleural or pericardial effusions are identified. No focal areas of consolidation or lung nodules/mass es are noted. There are dependent changes in the lung bases posteriorly. The liver, spleen, pancreas, adrenal glands and left kidney are normal. Cyst in the right kidney is s table. No free air, free fluid or lymphadenopathy seen in the abdomen or pelvis. The small bowel loops are n ot abnormally dilated. There is sigmoid diverticulosis. Diffuse mottled sclerosis of the skeleton is again seen. IMPRESSION: Interval development of mediastinal lymphadenopathy since last study. Remainder the exam is otherwis e stable.
[2019-10-15] MEDS ORDERED: Iopamidol 370 76% 100 ML VIAL ONE (13:43)
--- NOTE | 2019-10-15 13:43 | NM ---
WHOLE BODY BONE SCAN: HISTORY: Malignant neoplasm of prostate RADIOPHARMACEUTICAL: 30 mCi technetium 99m-MDP injected intravenously COMPARISON:07/23/2019 CORRELATION: CT chest, abdomen and pelvis from same date FINDINGS: There scattered degenerative activity in the appendicular skeleton. There are new foci of increased uptake in the lower lumbar spine and the left femoral neck. The other abnormal foci of tracer localization in the ribs, spine and pelvis are again seen. Tracer excretion through the kidneys is within normal limits. IMPRESSION: Interval worsening of osseous metastatic disease since 07/23/2019
== END 2019-10-15 08:11 | disposition home or self-care (01) ==
LOC: CT 08:10
PROVIDERS: ATTEND Internal Medicine Hematology & Oncology
DX: C61 Malignant neoplasm of prostate (principal); C79.51 Secondary malignant neoplasm of bone; R59.0 Localized enlarged lymph nodes
CPT/HCPCS: 71260; 74177; 78306; 80053; 82248; 83615; 84100; 84153; 84550; 85027; A9503; 36415; Q9967

== ENCOUNTER 2020-01-16 08:36 | Outpatient (CLI) | payer MEDICARE ==
[~2020-01-16 08:36] MED LIST: Iopamidol 370 76% 100 ML VIAL ONE
[2020-01-16 09:45] LABS: Estimated GFR-MDRD - POC Greater than 90
--- NOTE | 2020-01-16 10:49 | CT ---
CT CHEST AND ABDOMEN AND PELVIS WITH IV CONTRAST: Date: 01/16/2020 Oral contrast was administered. INDICATION: Prostate cancer follow-up. Comparison made to prior CT of chest, abdomen, and pelvis dated 10/15/2019 and 07/23/2019. FINDINGS: CT CHEST: The lungs remain clear. No pulmonary mass or nodule. No infiltrate or effusion. Review of the mediastinum again shows nonspecific lymph nodes. A precarinal lymph node described prev iously is again seen measuring approximately 1.1 cm. This appears slightly smaller than on the prior study. The subcarinal lymph node is again seen today measuring maximal dimension of 0.8 cm, smaller t hill on the prior study at which time it measures up to 1.2-1.5 cm. Diffuse osseous mottled sclerosis is again seen, unchanged. IMPRESSION: The mediastinal lymph nodes are slightly smaller today than on the prior study. CT chest is otherwise stable. The diffuse sclerotic mottled appearance of the thoracic vertebral bodies is unchanged. CT ABDOMEN AND PELVIS: Liver, spleen, and pancreas are unremarkable. Slight prominence to the pancreatic head, which was nedra cribed previously is unchanged. No evidence of pancreatic mass. Adrenal glands and kidneys unremarkable. There is a cyst in the right kidney which is stable. Bowel loops unremarkable. Aorta normal caliber. No evidence of adenopathy. Images through the pelvis show a distended bladder. Prostate is unremarkable. No evidence of pelvic a denopathy. Diverticulosis of the sigmoid colon again noted. Mottled sclerotic changes in the visualized osseous structures are stable in appearance. No focal lyt ic or blastic process seen. IMPRESSION: Stable CT abdomen and pelvis. No acute interval change. POS: [facility]
--- NOTE | 2020-01-16 15:04 | NM ---
WHOLE BODY BONE SCAN: HISTORY: Malignant neoplasm of prostate gland. COMPARISON: 10/15/2019. FINDINGS: Again noted are multifocal areas of increased uptake of radiotracer in the bilateral ribs, spine, and in the pelvis again suggestive of osseous metastatic disease. Overall intensity of uptake of activi ty may be slightly diminished. No definite new areas of increased uptake of radiotracer are seen wit hin the axilla or appendicular skeleton. Stable areas of increased activity are seen in the shoulders and at the base of each thumb in a degen erative-type pattern. Expected activity in the kidneys and urinary bladder is present. IMPRESSION: Osseous metastatic disease not progressed when compared to prior exam. POS: [facility]
== END 2020-01-16 08:37 | disposition home or self-care (01) ==
LOC: CT 08:36
PROVIDERS: ATTEND Internal Medicine Hematology & Oncology
DX: C61 Malignant neoplasm of prostate (principal); C79.51 Secondary malignant neoplasm of bone
CPT/HCPCS: 71260; 74177; 78306; 82565; A9503; Q9967

== ENCOUNTER 2020-04-20 08:28 | Outpatient (CLI) | payer MEDICARE ==
--- NOTE | 2020-04-20 12:09 | CT ---
CT CHEST AND ABDOMEN AND PELVIS WITH IV CONTRAST: Date: 04/20/2020 INDICATION: Prostate cancer with bone mets. Comparison made to CT chest and abdomen and pelvis dated 01/16/2020. FINDINGS: CT CHEST: The lungs remain well aerated and clear. There are chronic lung parenchymal changes which appear stab le. No evidence of pulmonary mass or nodule. No infiltrate. Mediastinum is stable in appearance. Nonspecific mediastinal lymph nodes are again seen and are uncha nged. Small precarinal lymph node noted previously measuring approximately 1.2 cm is stable. Thyroid unremarkable. Axilla unremarkable. The mottled appearance to the osseous structures, primarily the thoracic vertebra, appears unchanged. There is no focal lytic or blastic process identified. End plate deformities are stable in the thora cic vertebra. IMPRESSION: Stable CT chest. CT ABDOMEN AND PELVIS: Liver, spleen, and pancreas unremarkable. Stomach and duodenum unremarkable. Adrenal glands and kidneys remain unremarkable. The small right renal cystic lesion measuring approxi mately 2.0 cm is stable. Small and large bowel loops appear normal. Aorta is normal in appearance. No adenopathy. Images through the pelvis show mildly distended urinary bladder which is unremarkable. Prostate is mi ldly prominent and stable. There is no evidence of pelvic adenopathy. The osseous structures appear unchanged with mild mottled density again seen. No new lytic or blastic osseous lesion. IMPRESSION: Stable CT abdomen and pelvis. POS: AH
[2020-04-20] MEDS ORDERED: Iopamidol-370 76% 500 ML 1 ML ONE (13:59)
== END 2020-04-20 08:29 | disposition home or self-care (01) ==
LOC: BICCT 08:28
PROVIDERS: ATTEND Internal Medicine Hematology & Oncology
DX: C61 Malignant neoplasm of prostate (principal)
CPT/HCPCS: 36415; 71260; 74177; 80053; 82248; 83615; 84100; 84550; 85025; Q9967

== ENCOUNTER 2020-07-13 08:16 | Outpatient (CLI) | payer MEDICARE ==
--- NOTE | 2020-07-13 10:46 | CT ---
CT CHEST AND ABDOMEN AND PELVIS WITH IV CONTRAST: Date: 07/13/2020 HISTORY: Prostate cancer with bone mets. COMPARISON: 04/20/2020. FINDINGS: No mediastinal, hilar, or axillary mass or lymphadenopathy seen. No pleural or pericardial effusions are identified. No lung nodules or masses are seen. Chronic lung parenchymal changes are stable. The liver, spleen, pancreas, adrenal glands, and left kidney are normal. The 2.0 cm cyst in the right kidney is stable. No calcified gallstones are seen. No free air, free fluid, or lymphadenopathy is noted in the abdomen or pelvis. There are vascular calcifications without evidence of aneurysmal dilatation of the thoracoabdominal a gordon. Diffuse sclerosis of the skeleton is again noted. The small bowel loops are not abnormally dilated. There is sigmoid diverticulosis. IMPRESSION: Stable CT scan of the chest, abdomen, and pelvis since 04/20/2020. POS: [facility]FSANEH
[2020-07-13] MEDS ORDERED: Iopamidol-370 76% 500 ML 1 ML ONE (14:34)
== END 2020-07-13 08:17 | disposition home or self-care (01) ==
LOC: BICCT 08:16
PROVIDERS: ATTEND Internal Medicine Hematology & Oncology
DX: C61 Malignant neoplasm of prostate (principal)
CPT/HCPCS: 71260; 74177; 80053; 82248; 82565; 83615; 84100; 84153; 84550; Q9967

== ENCOUNTER 2020-10-18 08:34 | Outpatient (CLI) | payer MEDICARE ==
[2020-10-18 09:33] LABS: Estimated GFR-MDRD - POC Greater than 90
[2020-10-18] MEDS ORDERED: Iopamidol 370 76% 100 ML VIAL ONE (09:50)
--- NOTE | 2020-10-18 10:25 | CT ---
CT CHEST WITH IV CONTRAST CT ABDOMEN WITH IV CONTRAST CT PELVIS WITH IV CONTRAST: HISTORY: Prostate cancer with bone mets. COMPARISON: 07/13/2020 and 04/20/2020. FINDINGS: No mediastinal, hilar, or axillary mass or lymphadenopathy is seen. No pleural or pericardial effusi ons are noted. There is a new 4 mm peripheral solid-appearing nodule in the right upper lobe. There are dependent changes in the posterior lung castellanos. The liver, spleen, pancreas, adrenal glands, and left kidney are normal. A 2 cm right renal cyst is stable. No calcified gallstones are seen. No free air, free fluid, or lymphadenopathy is seen in the abdomen or pelvis. The small bowel loops are not abnormally dilated. The diffuse sclerosis of the skeleton is again noted. There are vascular calcifications without evid ence of aneurysmal dilatation of the thoracoabdominal aorta. Sigmoid diverticulosis is again noted. IMPRESSION: 1. New indeterminate 4 mm right upper lobe lung nodule. A followup CT scan of the chest is recommen ded in 3 months. 2. Stable appearance of the abdomen and pelvis. POS: [facility]
--- NOTE | 2020-10-18 13:45 | NM ---
WHOLE BODY BONE SCAN: Date: 10/18/2020 HISTORY: Malignant neoplasm of prostate. COMPARISON: 01/16/2020 and 10/15/2019. CORRELATION: CT chest, abdomen, and pelvis from today. RADIOPHARMACEUTICAL: 30 mCi technetium-99m MDP injected intravenously. FINDINGS: Interval decrease in the multifocal areas of increased radiotracer uptake in the bilateral ribs, pelv is, and spine are seen, except for the upper lumbar spine (likely L2) where there is mild interval in crease in uptake. Increased uptake in the joints consistent with degenerative changes are again seen in the shoulders, elbows, wrists, and ankles. Tracer excretion through the kidneys within normal limits. IMPRESSION: Overall improvement with mild interval worsening in the upper lumbar spine since 01/16/2020. POS: [facility]
== END 2020-10-18 08:35 | disposition home or self-care (01) ==
LOC: CT 08:34
PROVIDERS: ATTEND Internal Medicine Hematology & Oncology
DX: C61 Malignant neoplasm of prostate (principal); C79.51 Secondary malignant neoplasm of bone; R91.1 Solitary pulmonary nodule
CPT/HCPCS: 71260; 74177; 78306; 82565; A9503; 36415; 80053; 82248; 83615; 84100; 84153; 84550; Q9967

== ENCOUNTER 2021-01-13 08:13 | Outpatient (CLI) | payer MEDICARE ==
[2021-01-13] MEDS ORDERED: Iopamidol 370 76% 100 ML VIAL ONE (12:57)
== END 2021-01-13 08:14 | disposition home or self-care (01) ==
LOC: CT 08:13
PROVIDERS: ATTEND Internal Medicine Hematology & Oncology
DX: C61 Malignant neoplasm of prostate (principal); C79.51 Secondary malignant neoplasm of bone
CPT/HCPCS: 71260; 74177; 78306; A9503; 36415; 80053; 82248; 83615; 84100; 84153; 84550; Q9967

== ENCOUNTER 2021-12-08 08:48 | Outpatient (CLI) | payer MEDICARE ==
[2021-12-08] MEDS ORDERED: Iopamidol 370 76% 100 ML VIAL ONE (10:11)
== END 2021-12-08 08:49 | disposition home or self-care (01) ==
LOC: CT 08:48
PROVIDERS: ATTEND Internal Medicine Hematology & Oncology
DX: C61 Malignant neoplasm of prostate (principal); C79.51 Secondary malignant neoplasm of bone; S32.029A Unspecified fracture of second lumbar vertebra, initial encounter for closed fracture
CPT/HCPCS: 71260; 74177; 78306; 82565; A9503

== ENCOUNTER 2022-03-14 08:17 | Outpatient (CLI) | payer MEDICARE ==
[2022-03-14 09:18] LABS: Estimated GFR-MDRD - POC Greater than 90
[2022-03-14] MEDS ORDERED: Iopamidol 370 76% 100 ML VIAL ONE (09:21)
== END 2022-03-14 08:18 | disposition home or self-care (01) ==
LOC: CT 08:17
PROVIDERS: ATTEND Internal Medicine Hematology & Oncology
DX: C61 Malignant neoplasm of prostate (principal); C79.51 Secondary malignant neoplasm of bone; M48.8X6 Other specified spondylopathies, lumbar region
CPT/HCPCS: 71260; 74177; 78306; 82565; A9503; 80053; 84153; Q9967

== ENCOUNTER 2022-07-04 14:03 | Outpatient (CLI) | payer MEDICARE | END 2022-07-04 14:04 | disposition home or self-care (01) | LOC: SCSMRI 14:03 | PROVIDERS: ATTEND Internal Medicine Hematology & Oncology | DX: C79.51 Secondary malignant neoplasm of bone (principal); C61 Malignant neoplasm of prostate; M54.9 Dorsalgia, unspecified; M48.061 Spinal stenosis, lumbar region without neurogenic claudication; M51.36 Other intervertebral disc degeneration, lumbar region; M47.816 Spondylosis without myelopathy or radiculopathy, lumbar region; M84.48XA Pathological fracture, other site, initial encounter for fracture | CPT/HCPCS: 72158 ==

== ENCOUNTER 2022-12-06 08:58 | Outpatient (CLI) | payer MEDICARE ==
[2022-12-06] MEDS ORDERED: Iopamidol 370 76% 100 ML VIAL ONE (17:19)
== END 2022-12-06 08:59 | disposition home or self-care (01) ==
LOC: CT 08:58
PROVIDERS: ATTEND Internal Medicine Hematology & Oncology
DX: C61 Malignant neoplasm of prostate (principal); C79.51 Secondary malignant neoplasm of bone; M84.48XA Pathological fracture, other site, initial encounter for fracture
CPT/HCPCS: 71260; 74177; 78306; A9503; Q9967

== ENCOUNTER 2023-07-23 08:53 | Outpatient (CLI) | payer MEDICARE | END 2023-07-23 08:54 | disposition home or self-care (01) | LOC: CT 08:53 | PROVIDERS: ATTEND Internal Medicine Hematology & Oncology | DX: C61 Malignant neoplasm of prostate (principal); C79.51 Secondary malignant neoplasm of bone | CPT/HCPCS: 71260; 74177; 78306; 82565; A9503 ==

== ENCOUNTER 2024-03-29 01:36 | Inpatient (IN) | payer MEDICARE ==
[2024-03-29] MEDS ORDERED: Ondansetron ODT 4 MG TAB PO PRN (02:54)
[2024-03-29] MEDS ORDERED: Ondansetron PF 4 MG/2 ML Vial IVP PRN (02:54)
[2024-03-29] MEDS: Acetaminophen 650 MG/20.3 ML UDCUP PO SCH (06:02)
[2024-03-29 07:42] LABS: #Basophils 0.03 10x3/uL (0.0-0.2); #Eosinphils Less than 0.03 10x3/uL (0.0-0.7); %Basophils 0.7 % (0.0-1.0); %Eosinophils 0.5 % (0.0-10.0); %Lymphocytes 23.3 % (21.0-51.0); %Monocytes 14.2 % (0.0-10.0); %Neutrophils 60.6 % (42.0-75.0); Hematocrit 29.6 % (42.0-52.0); Hemoglobin 8.6 g/dL (14.0-18.0); Mean Corpuscular HGB CONC 29.1 g/dL (32.0-36.0); Mean Corpuscular Hemoglobin 30.1 pg (27.0-31.0); Mean Corpuscular Volume 103.5 fL (78.0-98.0); Mean Platelet Volume 11.8 fL (7.4-10.4); Platelet Count 84 10x3/uL (130-400); RBC Distribution Width 21.7 % (11.5-14.5); Red Blood Cell (RBC) Count 2.86 mill/uL (4.70-6.10)
[2024-03-29 08:23] LABS: Anion Gap 18 mmol/L (10-20); BUN (Urea Nitrogen) 11 mg/dL (8.4-25.7); Calc. Creatinine Clearance 87 mL/min (70-130); Calcium 9.1 mg/dL (7.8-10.44); Carbon Dioxide 14 mmol/L (23-31); Chloride 97 mmol/L (98-107); Estimated GFR 98; Glucose 79 mg/dL (83-110); Potassium 3.3 mmol/L (3.5-5.1); Sodium 126 mmol/L (136-145)
[2024-03-29] MEDS: Sodium Chloride 1 GM TAB PO SCH (09:26)
[2024-03-29] MEDS: Famotidine/PF 20 mg/2ml Vial SLOW IVP SCH ×2 (09:26→21:39)
[2024-03-29] MEDS: Famotidine 20 MG TAB PO SCH ×2 (09:26→21:37)
[2024-03-29] MEDS ORDERED: Dextrose 5% in Water 1,000 ML IV PRN (09:38)
[2024-03-29] MEDS ORDERED: Dextrose 50% Abboject 50 ML SYRINGE SLOW IVP PRN (09:38)
[2024-03-29] MEDS ORDERED: Glucagon 1 MG/ML KIT IM PRN (09:38)
[2024-03-29] MEDS ORDERED: Electrolyte Replacement Protocol 1 EACH FS SCH (09:45)
[2024-03-29 11:01] LABS: Thyroid Stimulating Hormone 2.6314 uIU/mL (0.35-4.94)
[2024-03-29] MEDS: Potassium Chloride 20 MEQ TAB PO SCH (11:45)
[2024-03-29] MEDS: Cyanocobalamin (Vitamin B-12) 1,000 MCG TAB PO SCH (13:36)
[2024-03-29] MEDS: Sodium Bicarbonate Tab 325 MG TAB PO SCH (21:36)
[2024-03-29] MEDS: Rosuvastatin 10 MG TAB PO SCH (21:37)
[2024-03-29] MEDS: Gabapentin 300 MG CAP PO SCH (21:38)
[2024-03-30 02:29] VITALS: BMI 20.1
[2024-03-30 05:47] LABS: ALT (SGPT) 7 U/L (8-55); AST (SGOT) 31 U/L (5-34); Albumin 2.3 g/dL (3.4-4.8); Alkaline Phosphatase 55 U/L (40-110); Anion Gap 12 mmol/L (10-20); BUN (Urea Nitrogen) 9 mg/dL (8.4-25.7); Bilirubin, Total 0.5 mg/dL (0.2-1.2); Calc. Creatinine Clearance 83 mL/min (70-130); Calcium 8.8 mg/dL (7.8-10.44); Carbon Dioxide 23 mmol/L (23-31); Chloride 98 mmol/L (98-107); Estimated GFR 97; Globulin 4.2 g/dL (2.4-3.5); Glucose 98 mg/dL (83-110); Potassium 3.4 mmol/L (3.5-5.1); Protein, Total 6.5 g/dL (5.8-8.1); Sodium 130 mmol/L (136-145)
[2024-03-30 06:34] LABS: #Basophils Less than 0.03 10x3/uL (0.0-0.2); #Eosinphils Less than 0.03 10x3/uL (0.0-0.7); %Basophils 0.2 % (0.0-1.0); %Eosinophils 0.4 % (0.0-10.0); %Lymphocytes 16.6 % (21.0-51.0); %Monocytes 10.9 % (0.0-10.0); %Neutrophils 71.3 % (42.0-75.0); Hematocrit 23.9 % (42.0-52.0); Hemoglobin 7.6 g/dL (14.0-18.0); Mean Corpuscular HGB CONC 31.8 g/dL (32.0-36.0); Mean Corpuscular Hemoglobin 30.2 pg (27.0-31.0); Mean Corpuscular Volume 94.8 fL (78.0-98.0); Mean Platelet Volume 11.2 fL (7.4-10.4); Platelet Count 90 10x3/uL (130-400); RBC Distribution Width 20.4 % (11.5-14.5); Red Blood Cell (RBC) Count 2.52 mill/uL (4.70-6.10)
[2024-03-30] MEDS: Potassium Chloride 20 MEQ TAB PO SCH (08:56)
[2024-03-30] MEDS: Cyanocobalamin (Vitamin B-12) 1,000 MCG TAB PO SCH (08:56)
[2024-03-30] MEDS ORDERED: Famotidine 20 MG TAB PO SCH (09:00)
[2024-03-30] MEDS: Gabapentin 100 MG CAP PO SCH (21:09)
[2024-03-30 22:14] LABS: Bacteria/HPF None Seen HPF (None Seen); Bilirubin Negative (Negative); Blood, Urine Negative (Negative); CAUTI Indications for Culture Alt mental st,lethar; Clarity Turbid (Clear); Glucose, Urine (Dipstick) Normal (Negative); Ketone, Urine 10 mg/dL (Negative); Leukocyte Negative Leu/uL (Negative); Nitrite Negative (Negative); Protein, Urine (Dipstick) 50 mg/dL (Neg-Trace); Specific Gravity, Urine 1.016 (1.002-1.036); Squamous Epithelial None Seen HPF (0-3); WBC/HPF 0-3 HPF (0-3); pH, Urine 7.5 (5.0-9.0)
[2024-03-30 22:16] LABS: Urine Culture Reflex No No
[2024-03-31 06:43] LABS: #Basophils Less than 0.03 10x3/uL (0.0-0.2); %Basophils 0.3 % (0.0-1.0); %Eosinophils 0.4 % (0.0-10.0); %Lymphocytes 21.7 % (21.0-51.0); %Monocytes 7.3 % (0.0-10.0); %Neutrophils 69.9 % (42.0-75.0); Hematocrit 25.5 % (42.0-52.0); Hemoglobin 8.1 g/dL (14.0-18.0); Mean Corpuscular HGB CONC 31.8 g/dL (32.0-36.0); Mean Corpuscular Hemoglobin 29.9 pg (27.0-31.0); Mean Corpuscular Volume 94.1 fL (78.0-98.0); Mean Platelet Volume 11.6 fL (7.4-10.4); Platelet Count 111 10x3/uL (130-400); RBC Distribution Width 20.5 % (11.5-14.5); Red Blood Cell (RBC) Count 2.71 mill/uL (4.70-6.10)
[2024-03-31 07:28] LABS: Anion Gap 16 mmol/L (10-20); BUN (Urea Nitrogen) 10 mg/dL (8.4-25.7); Calc. Creatinine Clearance 77 mL/min (70-130); Calcium 9.3 mg/dL (7.8-10.44); Carbon Dioxide 23 mmol/L (23-31); Chloride 95 mmol/L (98-107); Estimated GFR 95; Glucose 107 mg/dL (83-110); Magnesium 1.8 mg/dL (1.6-2.6); Potassium 3.3 mmol/L (3.5-5.1); Sodium 131 mmol/L (136-145)
[2024-03-31] MEDS: Potassium Chloride 20 MEQ TAB PO SCH (09:33)
[2024-03-31] MEDS: Magnesium 2 GM/50 ML(in water) 2 GM in Premix 1 BAG IVPB SCH (09:34)
[2024-03-31] MEDS: cefTRIAXone\\ROCEPHIN 1 GM in Sodium Chloride 0.9% 100 ML IVPB SCH (09:34)
[2024-03-31 11:41] VITALS: BMI 20.1
[2024-04-01 05:20] LABS: Anion Gap 11 mmol/L (10-20); BUN (Urea Nitrogen) 11 mg/dL (8.4-25.7); Calc. Creatinine Clearance 81 mL/min (70-130); Calcium 8.4 mg/dL (7.8-10.44); Carbon Dioxide 22 mmol/L (23-31); Chloride 96 mmol/L (98-107); Estimated GFR 96; Glucose 80 mg/dL (83-110); Potassium 3.4 mmol/L (3.5-5.1); Sodium 126 mmol/L (136-145)
[2024-04-01 05:23] LABS: #Basophils Less than 0.03 10x3/uL (0.0-0.2); %Basophils 0.2 % (0.0-1.0); %Eosinophils 1.2 % (0.0-10.0); %Lymphocytes 21.9 % (21.0-51.0); %Monocytes 9.9 % (0.0-10.0); %Neutrophils 66.2 % (42.0-75.0); Hematocrit 22.5 % (42.0-52.0); Mean Corpuscular HGB CONC 31.1 g/dL (32.0-36.0); Mean Corpuscular Hemoglobin 29.2 pg (27.0-31.0); Mean Corpuscular Volume 93.8 fL (78.0-98.0); Mean Platelet Volume 11.3 fL (7.4-10.4); Platelet Count 89 10x3/uL (130-400); RBC Distribution Width 19.9 % (11.5-14.5)
[2024-04-01] MEDS: Potassium Chloride 20 MEQ TAB PO SCH (09:02)
[2024-04-02 05:18] LABS: #Basophils Less than 0.03 10x3/uL (0.0-0.2); %Basophils 0.4 % (0.0-1.0); %Eosinophils 2.4 % (0.0-10.0); %Lymphocytes 18.4 % (21.0-51.0); %Monocytes 9.7 % (0.0-10.0); %Neutrophils 68.5 % (42.0-75.0); Hematocrit 24.9 % (42.0-52.0); Hemoglobin 8.2 g/dL (14.0-18.0); Mean Corpuscular HGB CONC 32.9 g/dL (32.0-36.0); Mean Corpuscular Hemoglobin 30.3 pg (27.0-31.0); Mean Corpuscular Volume 91.9 fL (78.0-98.0); Mean Platelet Volume 10.9 fL (7.4-10.4); Platelet Count 87 10x3/uL (130-400); RBC Distribution Width 19.4 % (11.5-14.5); Red Blood Cell (RBC) Count 2.71 mill/uL (4.70-6.10)
[2024-04-02 05:32] LABS: Anion Gap 11 mmol/L (10-20); BUN (Urea Nitrogen) 9 mg/dL (8.4-25.7); Calc. Creatinine Clearance 85 mL/min (70-130); Calcium 8.4 mg/dL (7.8-10.44); Carbon Dioxide 23 mmol/L (23-31); Chloride 97 mmol/L (98-107); Estimated GFR 98; Glucose 88 mg/dL (83-110); Potassium 3.8 mmol/L (3.5-5.1); Sodium 127 mmol/L (136-145)
[2024-04-02] MEDS: Acetaminophen 650 MG/20.3 ML UDCUP PO PRN (09:45)
[2024-04-02 12:01] VITALS: BP 101/57; TEMP 98
[2024-04-03 02:13] LABS: % Free PSA 60.1 % (.); Total PSA 7.3 ng/mL (0.0-4.0)
== END 2024-04-02 13:32 | disposition hospice, home (50) | DRG 643 ==
LOC: SJJU 02:42 → OBSVTOIN 12:08
PROVIDERS: ADMIT Student in an Organized Health Care Education/Training Program; ATTEND Family Medicine
PROC: 30233N1 Transfusion of Nonautologous Red Blood Cells into Peripheral Vein, Percutaneous Approach (ICD-10-PCS; principal; 2024-04-01)
DX: E22.2 Syndrome of inappropriate secretion of antidiuretic hormone (principal); G93.41 Metabolic encephalopathy; E87.20 Acidosis, unspecified; N39.0 Urinary tract infection, site not specified; C79.51 Secondary malignant neoplasm of bone; C61 Malignant neoplasm of prostate; I10 Essential (primary) hypertension; E16.2 Hypoglycemia, unspecified; E87.6 Hypokalemia; Z66 Do not resuscitate; D50.9 Iron deficiency anemia, unspecified; E78.5 Hyperlipidemia, unspecified; Z95.2 Presence of prosthetic heart valve; Z92.3 Personal history of irradiation; Z79.899 Other long term (current) drug therapy; Z86.73 Personal history of transient ischemic attack (TIA), and cerebral infarction without residual deficits; Z79.82 Long term (current) use of aspirin; Z88.8 Allergy status to other drugs, medicaments and biological substances; Z88.5 Allergy status to narcotic agent; Z88.1 Allergy status to other antibiotic agents
CPT/HCPCS: 36415; 36416; 36430; 80048; 80053; 81001; 82274; 82533; 82607; 83735; 83930; 83935; 84153; 84154; 84300; 84443; 84550; 85025; 86850; 86900; 86901; J0696; J3475; J3490; P9016